=== PATIENT | female | born 1990 ===

== ENCOUNTER 2018-03-01 08:56 | Outpatient (CLI) | payer OTHER ==
[~2018-03-01] VITALS: Ht 152.4 cm; Wt 90.7 kg
== END 2018-03-01 09:15 | disposition home or self-care (01) ==
LOC: OFIC 805 08:56
DX: H69.83 Other specified disorders of Eustachian tube, bilateral (principal); J31.0 Chronic rhinitis; H72.2X1 Other marginal perforations of tympanic membrane, right ear; H61.23 Impacted cerumen, bilateral; H66.001 Acute suppurative otitis media without spontaneous rupture of ear drum, right ear

== ENCOUNTER 2018-12-06 10:10 | Outpatient (CLI) | payer OTHER ==
[~2018-12-06] VITALS: Ht 152.4 cm; Wt 90.7 kg
== END 2018-12-06 10:30 | disposition home or self-care (01) ==
LOC: OFIC 805 10:10
DX: J01.80 Other acute sinusitis (principal); H90.0 Conductive hearing loss, bilateral; J31.0 Chronic rhinitis; H69.83 Other specified disorders of Eustachian tube, bilateral; H66.001 Acute suppurative otitis media without spontaneous rupture of ear drum, right ear; H72.81 Multiple perforations of tympanic membrane